=== PATIENT | male | born 1965 | race Caucasian/White ===

== ENCOUNTER 2022-06-19 18:31 | Emergency (ER) | payer MEDICAID | END 2022-06-19 21:52 | disposition left against medical advice (07) | LOC: ER 18:32 | DX: F29 Unspecified psychosis not due to a substance or known physiological condition (principal); Z53.21 Procedure and treatment not carried out due to patient leaving prior to being seen by health care provider ==

== ENCOUNTER 2022-07-09 18:33 | Emergency (ER) | payer MEDICAID ==
[~2022-07-09] VITALS: Ht 177.8 cm; Wt 59.2 kg
[2022-07-09] MEDS ORDERED: MOME13HF11 INH (19:57)
[2022-07-09] MEDS ORDERED: ARIP20TA4 PO (19:57)
[2022-07-09] MEDS ORDERED: HYDR-3686 PO (19:57)
[2022-07-09] MEDS ORDERED: DIVA500T2 PO (19:57)
[2022-07-09 20:10] LABS: URINE AMPHETAMINE SCREEN NEGATIVE (Neg); URINE BARBITUATE SCREEN NEGATIVE (Neg); URINE BENZODIAZEPINES SCREEN NEGATIVE (Neg); URINE CANNABINOID SCREEN NEGATIVE (Neg); URINE COCAINE SCREEN NEGATIVE (Neg); URINE METHADONE SCREEN NEGATIVE (Neg); URINE OPIATE SCREEN NEGATIVE (Neg); URINE PHENCYCLIDINE SCREEN NEGATIVE (Neg)
[2022-07-09 20:19] LABS: BASOPHILS # (AUTO) 0.1 X10'3 (0-0.2); BASOPHILS % (AUTO) 1.2 % (0-1); EOSINOPHILS # (AUTO) 0.3 X10'3 (0-0.9); EOSINOPHILS % (AUTO) 2.8 % (0-6); HEMATOCRIT 39.7 % (42.0-52.0); HEMOGLOBIN 13.4 g/dl (14.0-17.9); LYMPHOCYTES % (AUTO) 19.5 % (21-51); MEAN CORPUSCULAR HGB CONC 33.6 g/dL (33.0-36.5); MEAN PLATELET VOLUME 6.3 FL (7.4-10.4); MONOCYTES # (AUTO) 0.6 X10'3 (0-0.9); MONOCYTES % (AUTO) 6.2 % (2-12); NEUTROPHILS # (AUTO) 7.1 X10'3 (1.8-7.7); NEUTROPHILS % (AUTO) 70.3 % (42-75); PLATELET COUNT 343 X10'3 (140-440); RED BLOOD COUNT 3.94 X10'6 (4.70-6.10); RED CELL DISTRIBUTION WIDTH 13.7 % (11.5-14.5)
[2022-07-09 20:45] LABS: ALANINE AMINOTRANSFERASE 16 U/L (12-78); ALBUMIN 3.9 G/DL (3.4-5.0); ALBUMIN/GLOBULIN RATIO 1.2 (1.1-1.5); ALKALINE PHOSPHATASE 67 IU/L (46-116); ANION GAP 9 (8-16); ASPARTATE AMINO TRANSFERASE 17 U/L (10-37); BILIRUBIN,TOTAL 0.2 MG/DL (0.1-1.0); BLOOD UREA NITROGEN 23 MG/DL (7-18); BUN/CREATININE RATIO 28.4 (5.4-32.0); CALCIUM 8.9 MG/DL (8.5-10.1); CHLORIDE 107 MMOL/L (99-107); CREATININE 0.81 MG/DL (0.60-1.10); ETHANOL < 0.010 GM/DL (0.0-0.010); GLUCOSE 102 MG/DL (70-104); POTASSIUM 3.9 MMOL/L (3.5-5.1); SODIUM 142 MMOL/L (135-145); TOTAL CARBON DIOXIDE 26.4 MMOL/L (24-32); TOTAL PROTEIN 7.2 G/DL (6.4-8.2); eGFR > 90 ML/MIN
[2022-07-09 20:47] LABS: VALPROATE < 3.0 UG/ML (50-100)
[2022-07-09] MEDS ORDERED: hydrOXYzine 25 MG tablet PO PRN (21:05)
--- NOTE | 2022-07-09 23:00 | NUR ---
Patient brought to the main ER to bed 21. Patient is well oriented and cooperative at this time. He states he has had been having problems sleeping.
[2022-07-09] MEDS ORDERED: LORazepam 1 MG tablet PO ONE (23:15)
[2022-07-09] MEDS ORDERED: traZODone 50mg tablet PO ONE (23:15)
[2022-07-09] MEDS ORDERED: LORazepam 0.5 MG tablet PO ONE (23:20)
--- NOTE | 2022-07-09 23:42 | NUR ---
This patient was given Trazadone 50 mg PO and Ativan 0.5 mg PO as he has a complaint of anxiety and not being to sleep well. Patient is medication compliant.
--- NOTE | 2022-07-10 00:46 | NUR ---
Patient is sleeping quietly on his right side. No distress. In green scrubs with non slip socks.
--- NOTE | 2022-07-10 02:15 | NUR ---
Patient has self repositioned in bed. He is sleeping in a prone position. No distress noted.
[2022-07-10] MEDS: albuterol 2.5 MG/3 ML nebule NEB SCH ×4 (02:44→21:27)
--- NOTE | 2022-07-10 04:17 | NUR ---
Patient is sleeping quietly on his right side.
--- NOTE | 2022-07-10 05:08 | NUR ---
Patient is sleeping quietly in a prone position.
--- NOTE | 2022-07-10 05:37 | NUR ---
Packet faxed to [facility].
--- NOTE | 2022-07-10 06:07 | NUR ---
Patient is awake and sitting in her chair, she is sipping a decafinated coffee.
[2022-07-10] MEDS ORDERED: ARIPIPRAZOLE 10 MG TABLET PO SCH (08:00)
--- NOTE | 2022-07-10 09:45 | NUR ---
pt is awake in room quietly finishing breakfast. pt has no needs at this time, will continue with plan of care.
[2022-07-10] MEDS: budesonide 0.5mg/2ml UD nebule IH SCH ×2 (09:49→21:27)
--- NOTE | 2022-07-10 09:49 | NUR ---
RT AT BEDSIDE.
--- NOTE | 2022-07-10 11:17 | NUR ---
PT APPEARS TO BE SLEEPING ON RIGHT SIDE. RR 12, EVEN AND UNLABORED. PT HAS NO NEEDS AT THIS TIME. WILL CONTINUE WITH PLAN OF CARE.
--- NOTE | 2022-07-10 11:37 | NUR ---
RITA FROM [facility] AT BEDSIDE WITH PATIENT.
--- NOTE | 2022-07-10 12:28 | NUR ---
PT IN ROOM EATING LUNCH. PT HAS NO NEEDS AT THIS TIME, WILL CONTINUE WITH PLAN OF CARE.
--- NOTE | 2022-07-10 13:24 | NUR ---
PT APPEARS TO BE SLEEPING ON LEFT SIDE. RR EVEN AND UNLABORED. PT HAS NO NEEDS AT THIS TIME, WILL CONTINUE WITH PLAN OF CARE.
--- NOTE | 2022-07-10 15:07 | NUR ---
SPOKE WITH [facility] REGARDING PLACEMENT.
--- NOTE | 2022-07-10 15:52 | NUR ---
PT GAVE [facility]A SAMPLE.
--- NOTE | 2022-07-10 16:23 | NUR ---
PT IN ROOM RESTING QUIETLY. PT HAS NO NEEDS AT THIS TIME, WILL CONTINUE WITH PLAN OF CARE.
--- NOTE | 2022-07-10 16:31 | NUR ---
SPOKE WITH MAGALY FROM [facility]. [facility] WILL BE MOVING FORWARD WITH ACCEPTING OF PATIENT, CURRENTLY STILL LOOKING FOR AVAILABLE TRANSPORATION FOR PT. ONCE TRANSPORATION IS ARRANGED, WILL RECIEVE CALL BACK.
--- NOTE | 2022-07-10 16:36 | NUR ---
PT GIVEN CRACKERS AND JUICE. PT UPDATED ON PLAN OF CARE. PT CONTINUES TO REST QUIETLY IN ROOM. PT HAS NO FURTHER NEEDS AT THIS TIME. WILL CONTINUE WITH PLAN OF CARE.
[2022-07-10 16:37] LABS: CLARITY,URINE CLEAR (Clear); COLOR,URINE YELLOW (Yellow); GLUCOSE, URINE NEGATIVE (Neg); KETONES,URINE TRACE mg/dl (Neg); LEUKOCYTE ESTERASE ,URINE NEGATIVE (Neg); NITRITES, URINE NEGATIVE (Neg); OCCULT BLOOD,URINE NEGATIVE (Neg); PH,URINE 5.5 (4.8-8.0); PROTEIN,URINE NEGATIVE (Neg); UROBILINOGEN,URINE 0.2 E.U/dL (0.2-1.0)
[2022-07-10 16:46] LABS: UA COLLECTION TYPE CLN CATCH MIDSTREAM
--- NOTE | 2022-07-10 16:54 | NUR ---
[facility]
--- NOTE | 2022-07-10 17:38 | NUR ---
PT APPEARS TO BE SLEEPING ON LEFT SIDE. PTS RESPIRATIONS EVEN AND UNLABORED. PT HAS NO NEEDS AT THIS TIME. AWAITING TRANSPORTATION UPDATE FROM [facility]. WILL CONTINUE WITH PLAN OF CARE.
--- NOTE | 2022-07-10 17:57 | NUR ---
DINNER MEAL TRAY GIVEN.
--- NOTE | 2022-07-10 18:47 | NUR ---
PT RESTING IN ER BED 12 ON STOMACH. PT DOES NOT APPEAR TO BE IN ANY DISTRESS AT THIS TIME.
--- NOTE | 2022-07-10 19:18 | NUR ---
PER [facility] ETA FOR TRANSPORTATION IS 2030
--- NOTE | 2022-07-10 20:09 | NUR ---
PT AWOKE TO RECIEVE EVENING MEDICATIONS AND DRINK A GLASS OF WATER. PT RETURNED TO RESTING PRONE ON THE GURNEY. PT HAS NO NEEDS AT THIS TIME.
[2022-07-10] MEDS ORDERED: divalproex sodium 500mg tablet.DR PO SCH (21:00)
[2022-07-10 21:53] VITALS: BP 112/52
== END 2022-07-10 21:54 ==
LOC: ER 18:33
DX: S51.812A Laceration without foreign body of left forearm, initial encounter (principal); F32.9 Major depressive disorder, single episode, unspecified; Z20.822 Contact with and (suspected) exposure to COVID-19; R45.851 Suicidal ideations; F20.9 Schizophrenia, unspecified; F17.200 Nicotine dependence, unspecified, uncomplicated; Z79.899 Other long term (current) drug therapy; Z72.89 Other problems related to lifestyle; R22.1 Localized swelling, mass and lump, neck; X83.8XXA Intentional self-harm by other specified means, initial encounter; Y93.89 Activity, other specified; Y92.89 Other specified places as the place of occurrence of the external cause; Y99.8 Other external cause status
CPT/HCPCS: 36415; 80053; 80164; 80305; 80320; 81003; 85025; 87811; 94640; 94760; 99285

== ENCOUNTER 2022-07-26 08:41 | Emergency (ER) | payer MEDICAID ==
[~2022-07-26] VITALS: Ht 177.8 cm; Wt 63.0 kg
[~2022-07-26 08:41] MED LIST: ARIP20TA4 PO; DIVA500T2 PO; HYDR-3686 PO; MOME13HF11 INH
[2022-07-26 09:04] VITALS: BP 122/62
== END 2022-07-26 15:45 | disposition left against medical advice (07) ==
LOC: ER 08:41
DX: R10.31 Right lower quadrant pain (principal); Z53.21 Procedure and treatment not carried out due to patient leaving prior to being seen by health care provider
CPT/HCPCS: 99281

== ENCOUNTER 2022-07-30 22:09 | Emergency (ER) | payer MEDICAID ==
[~2022-07-30] VITALS: Ht 177.8 cm; Wt 63.6 kg
[2022-07-30 23:26] LABS: CLARITY,URINE SLIGHTLY CLOUDY (Clear); COLOR,URINE YELLOW (Yellow); GLUCOSE, URINE NEGATIVE (Neg); KETONES,URINE >=80 mg/dl (Neg); LEUKOCYTE ESTERASE ,URINE NEGATIVE (Neg); NITRITES, URINE NEGATIVE (Neg); OCCULT BLOOD,URINE NEGATIVE (Neg); PH,URINE 5.5 (4.8-8.0); PROTEIN,URINE 30 mg/dl (Neg)
[2022-07-30 23:37] LABS: URINE AMPHETAMINE SCREEN POSITIVE (Neg); URINE BARBITUATE SCREEN NEGATIVE (Neg); URINE BENZODIAZEPINES SCREEN NEGATIVE (Neg); URINE CANNABINOID SCREEN POSITIVE (Neg); URINE COCAINE SCREEN NEGATIVE (Neg); URINE METHADONE SCREEN NEGATIVE (Neg); URINE OPIATE SCREEN NEGATIVE (Neg); URINE PHENCYCLIDINE SCREEN NEGATIVE (Neg)
[2022-07-30 23:42] LABS: BASOPHILS % (AUTO) 0.5 % (0-1); EOSINOPHILS # (AUTO) 0.2 X10'3 (0-0.9); EOSINOPHILS % (AUTO) 2.7 % (0-6); HEMATOCRIT 39.1 % (42.0-52.0); HEMOGLOBIN 13.3 g/dl (14.0-17.9); LYMPHOCYTES # (AUTO) 1.2 X10'3 (1.1-4.8); LYMPHOCYTES % (AUTO) 14.6 % (21-51); MEAN CORPUSCULAR HEMOGLOBIN 33.6 PG (27.0-31.0); MEAN CORPUSCULAR HGB CONC 34.1 g/dL (33.0-36.5); MEAN CORPUSCULAR VOLUME 98.6 FL (78-98); MEAN PLATELET VOLUME 6.8 FL (7.4-10.4); MONOCYTES # (AUTO) 0.6 X10'3 (0-0.9); MONOCYTES % (AUTO) 7.7 % (2-12); NEUTROPHILS # (AUTO) 6.1 X10'3 (1.8-7.7); NEUTROPHILS % (AUTO) 74.5 % (42-75); PLATELET COUNT 320 X10'3 (140-440); RED BLOOD COUNT 3.96 X10'6 (4.70-6.10); RED CELL DISTRIBUTION WIDTH 13.9 % (11.5-14.5); WHITE BLOOD COUNT 8.1 X10'3 (4.5-11.0)
[2022-07-30 23:50] LABS: UA COLLECTION TYPE CLN CATCH MIDSTREAM
[2022-07-30 23:51] LABS: MUCUS STRANDS MANY /LPF (Neg); SPERM MODERATE /HPF (NEGATIVE); SQUAMOUS EPITHELIAL CELL,UR FEW /LPF (FEW)
[2022-07-30 23:52] LABS: BACTERIA,URINE FEW /HPF (Neg); WBC,URINE 20-30 /HPF (0-4)
[2022-07-30 23:56] LABS: ALANINE AMINOTRANSFERASE 28 U/L (12-78); ALBUMIN 3.9 G/DL (3.4-5.0); ALBUMIN/GLOBULIN RATIO 1.2 (1.1-1.5); ALKALINE PHOSPHATASE 67 IU/L (46-116); ANION GAP 7 (8-16); ASPARTATE AMINO TRANSFERASE 26 U/L (10-37); BILIRUBIN,TOTAL 0.5 MG/DL (0.1-1.0); BLOOD UREA NITROGEN 29 MG/DL (7-18); CALCIUM 8.8 MG/DL (8.5-10.1); CHLORIDE 104 MMOL/L (99-107); CREATININE 0.88 MG/DL (0.60-1.10); GLUCOSE 94 MG/DL (70-104); SODIUM 142 MMOL/L (135-145); TOTAL CARBON DIOXIDE 30.7 MMOL/L (24-32); TOTAL PROTEIN 7.2 G/DL (6.4-8.2); eGFR 90 ML/MIN
[2022-07-31 00:01] LABS: ETHANOL < 0.010 GM/DL (0.0-0.010)
[2022-07-31] MEDS ORDERED: PRAZ5CAP2 PO (03:29)
[2022-07-31 04:07] LABS: VALPROATE 5 UG/ML (50-100)
[2022-07-31 04:13] LABS: ACETAMINOPHEN < 2.0 UG/ML (10-30)
--- NOTE | 2022-07-31 18:39 | NUR ---
PT LAYING ON RIGHT SIDE AND APPEARS TO BE ASLEEP. PT DOES NOT APPEAR TO BE IN ANY DISTRESS AT THIS TIME.
--- NOTE | 2022-07-31 20:12 | NUR ---
PT LAYING ON GURNEY AND APPEARS TO BE ASLEEP. NO DISTRESS OBSERVED AT THIS TIME.
--- NOTE | 2022-07-31 21:25 | NUR ---
PT CONINUES TO SLEEP ON GURNEY IN ROOM. NO DISTRESS OBSERVED AT THIS TIME.
--- NOTE | 2022-07-31 22:38 | NUR ---
PT SLEEPING IN ER ROOM 14 ON THE GURNEY. RR ARE EQUAL AND UNLABORED.
--- NOTE | 2022-07-31 22:56 | NUR ---
Received pt from main ER to bed 22.
--- NOTE | 2022-07-31 23:23 | NUR ---
Pt cooperative with care, states +SI with a plan to walk into traffic, +AH and states he doesnt want to talk about it. He was taking depakote and felt it wasnt working for him. Pt requested a snack and went to sleep.
--- NOTE | 2022-08-01 01:00 | NUR ---
Pt appears to be sleeping.
--- NOTE | 2022-08-01 04:12 | NUR ---
Pt appears to be sleeping.
--- NOTE | 2022-08-01 07:00 | NUR ---
Pt. asleep, no s/sx of distress.
--- NOTE | 2022-08-01 09:00 | NUR ---
Pt. awake in bed,no s/sx of distress.
--- NOTE | 2022-08-01 11:00 | NUR ---
Pt. awake, MH reviewed with pt. 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 Pt.wringing his hands, endorses severe anxiety.
[2022-08-01] MEDS ORDERED: LORazepam 1 MG tablet PO ONE (11:20)
--- NOTE | 2022-08-01 11:30 | NUR ---
N.O recieved Ativan 1mg PO once; med taken without hesitation.
--- NOTE | 2022-08-01 12:30 | NUR ---
Pt. awake and sitting on side of the bed eating lunch.
--- NOTE | 2022-08-01 14:30 | NUR ---
Pt. asleep on Rt. side, no distress noted.
--- NOTE | 2022-08-01 16:30 | NUR ---
Pt. in bed resting, no distress noted
--- NOTE | 2022-08-01 17:16 | NUR ---
Recieved a call from Kemi at [facility], Depakene lab levels faxed to [phone], nursing info exchanged, and she will call back if he is accepted.
--- NOTE | 2022-08-01 18:30 | NUR ---
pt. resting in bed
--- NOTE | 2022-08-01 19:30 | NUR ---
pt. appears to be sleeping. no distress noted
--- NOTE | 2022-08-01 20:30 | NUR ---
pt. appears to be sleeping. no distress noted
[2022-08-01] MEDS ORDERED: prazosin 5mg capsule PO SCH (21:00)
[2022-08-01] MEDS ORDERED: divalproex 250mg tablet, delayed-release PO SCH (21:00)
--- NOTE | 2022-08-01 21:30 | NUR ---
awaken pt. for medications. Compliant with medication. Minipress was held d/t low bp 92/64.
--- NOTE | 2022-08-01 23:04 | NUR ---
pt. appears to be sleeping without difficulty.
--- NOTE | 2022-08-02 00:20 | NUR ---
patient appears to be sleeping without difficulty
--- NOTE | 2022-08-02 01:04 | NUR ---
pt. lying on left side appears to be sleeping without difficulty.
--- NOTE | 2022-08-02 02:42 | NUR ---
pt. lying on right side and appears to be sleeping without difficulty
--- NOTE | 2022-08-02 03:37 | NUR ---
pt. appears to be sleeping without difficulty
--- NOTE | 2022-08-02 05:24 | NUR ---
pt. lying on his left side and appears to be sleeping
[2022-08-02 06:00] VITALS: BP 97/55
--- NOTE | 2022-08-02 06:30 | NUR ---
Pt appears to be sleeping. RR even and unlabored. 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
--- NOTE | 2022-08-02 08:23 | NUR ---
Pt up for breakfast. He ate 100% used the BR then went back to sleep.
--- NOTE | 2022-08-02 10:22 | NUR ---
Pt appears to be sleeping.
--- NOTE | 2022-08-02 11:45 | NUR ---
Pt appears to be sleeping.
== END 2022-08-02 12:30 | disposition still patient (30) ==
LOC: ER 22:09
DX: R45.851 Suicidal ideations (principal); Z20.822 Contact with and (suspected) exposure to COVID-19; F15.10 Other stimulant abuse, uncomplicated; F32.9 Major depressive disorder, single episode, unspecified; F20.9 Schizophrenia, unspecified; F12.90 Cannabis use, unspecified, uncomplicated; Z79.899 Other long term (current) drug therapy
CPT/HCPCS: 36415; 80053; 80164; 80305; 80320; 80329; 81001; 84443; 85025; 87811; 99285